=== PATIENT | female | born 1970 | race Caucasian/White ===

== ENCOUNTER 2018-08-17 21:01 | Emergency (ER) | payer OTHER ==
[~2018-08-17] VITALS: Ht 160 cm; Wt 111.4 kg
[2018-08-17] MEDS ORDERED: ALBU8HFA IH ×2 (21:50→21:53)
[2018-08-17] MEDS ORDERED: IPRAHFA IH (21:51)
[2018-08-17] MEDS ORDERED: BECL10.6 IH (21:52)
[2018-08-17 21:55] LABS: GLUCOSE,POINT OF CARE 239 MG/DL (70-110)
[2018-08-17 22:17] LABS: BASOPHILS % (AUTO) 0.9 % (0.0-2.0); EOSINOPHILS % (AUTO) 2.4 % (1.0-6.0); HEMATOCRIT 32.2 % (36-46); HEMOGLOBIN 10.8 g/dL (12.0-16.0); LYMPHOCYTES # (AUTO) 0.7 K/uL (1.0-4.8); MEAN CORPUSCULAR HEMOGLOBIN 29.8 pg (26.0-34.0); MEAN CORPUSCULAR HGB CONC 33.4 G/dL (31.0-37.0); MEAN CORPUSCULAR VOLUME 89 fL (80-100); MONOCYTES # (AUTO) 0.3 K/uL (0.1-1.0); MONOCYTES % (AUTO) 6.3 % (2.0-9.0); NEUTROPHILS % (AUTO) 73.4 % (40.0-70.0); PLATELET COUNT (AUTO) 202 K/uL (150-450); RED BLOOD CELL COUNT(AUTO) 3.62 MIL/uL (4.00-5.20); RED CELL DISTRIBUTION WIDTH 15.7 % (11.5-14.5)
[2018-08-17 22:34] LABS: ANION GAP 11 mmol/L (8-16); CARBON DIOXIDE 27 mmol/L (22-29); CHLORIDE 97 mmol/L (98-107); CREATININE 0.72 mg/dL (0.60-1.30); GLOMERULAR FILTR. RATE CALC > 60 mL/min (>60); GLUCOSE,RANDOM 217 mg/dL (70-110); POTASSIUM 3.8 mmol/L (3.5-5.1); SODIUM SERUM 135 mmol/L (136-145); UREA NITROGEN, BLOOD 9 mg/dL (7-18)
[2018-08-17 22:39] LABS: ALANINE AMINOTRANSFERASE 25 U/L (12-78); ALBUMIN 3.2 g/dL (3.4-5.0); ALKALINE PHOSPHATASE 167 U/L (46-116); ASPARTATE AMINOTRANSFERASE 54 U/L (15-37); TOTAL PROTEIN, SERUM 8.3 g/dL (6.4-8.2)
[2018-08-18] MEDS ORDERED: AZITHROMYCIN 500 MG/NS 250 ML IV ONE (01:00)
[2018-08-18] MEDS ORDERED: MethylPREDNISolone SOD SUCC 125 MG/2 ML VIAL IVP ONE (01:00)
[2018-08-18] MEDS ORDERED: ALBUTEROL SULFATE 2.5 MG/0.5 ML NEB SOLUTION NEB PRN (01:00)
[2018-08-18] MEDS ORDERED: IPRATROPIUM BROMIDE 0.5 MG/2.5 ML NEB SOLUTION NEB PRN (01:00)
[2018-08-18] MEDS ORDERED: MORPHINE SULFATE 4 MG/ML SYRINGE IVP ONE (01:30)
[2018-08-18] MEDS ORDERED: SODIUM CHLORIDE 0.9% 100 ML ONE (02:50)
[2018-08-18] MEDS ORDERED: IOVERSOL 350 MG/ML 150 ML VIAL ONE (02:50)
[2018-08-18] MEDS ORDERED: DiphenhydrAMINE HCL 50 MG/ML VIAL IVP ONE (03:30)
[2018-08-18 04:49] VITALS: BP 160/80
== END 2018-08-18 04:52 | disposition home or self-care (01) ==
LOC: EMS 21:02
DX: R07.2 Precordial pain (principal); E11.9 Type 2 diabetes mellitus without complications; J44.9 Chronic obstructive pulmonary disease, unspecified; Z90.710 Acquired absence of both cervix and uterus; Z88.0 Allergy status to penicillin; Z88.6 Allergy status to analgesic agent; Z91.040 Latex allergy status; Z91.09 Other allergy status, other than to drugs and biological substances
CPT/HCPCS: 36415; 71045; 71275; 80053; 82962; 83880; 84484; 85025; 85379; 93005; 94640; 96365; 96375; 99284; G0480; J0456; J1200; J2270; J2930; J7050; Q9967